=== PATIENT | male | born 1930 | race Caucasian/White ===

== ENCOUNTER 2017-11-19 12:15 | Emergency (ER) | payer OTHER ==
[~2017-11-19] VITALS: Ht 182.9 cm; Wt 81.7 kg
[2017-11-19] MEDS ORDERED: COLACE100 MG PO (12:30)
[2017-11-19] MEDS ORDERED: CALCIUM 600 +1 EAC1 PO (12:30)
[2017-11-19] MEDS ORDERED: IRON325 PO (12:31)
[2017-11-19] MEDS ORDERED: SYNTHROID50 MCG PO (12:31)
[2017-11-19] MEDS ORDERED: LISINOPRIL-HCT1 EAC1 PO (12:32)
[2017-11-19] MEDS ORDERED: REMERON15 MG PO (12:32)
[2017-11-19] MEDS ORDERED: UNICOMPLEX M TA1 TA1 PO (12:32)
[2017-11-19] MEDS ORDERED: NAMZARIC 28 MG1 EACH PO (12:32)
[2017-11-19] MEDS ORDERED: SIMVASTATIN40 MG PO (12:33)
[2017-11-19] MEDS ORDERED: VITAMIN B-12500 MCG PO (12:33)
[2017-11-19 12:35] LABS: URINE BILIRUBIN NEGATIVE (Negative); URINE BLOOD NEGATIVE (Negative); URINE CLARITY CLEAR; URINE COLOR YELLOW; URINE GLUCOSE-RANDOM NEGATIVE (Negative); URINE KETONES NEGATIVE (Negative); URINE LEUKOCYTES-REFLEX NEGATIVE (Negative); URINE NITRITE-REFLEX NEGATIVE (Negative); URINE PROTEIN NEGATIVE (Negative); URINE SPECIFIC GRAVITY 1.015 (1.005-1.030); URINE UROBILINOGEN 0.2 E.U./dl (0.2-1.0)
[2017-11-19 12:48] LABS: ABSOLUTE BASOPHILS 0.1 thou/uL (0.0-0.2); ABSOLUTE EOSINOPHILS 0.1 thou/uL (0.0-0.7); ABSOLUTE LYMPHOCYTES 2.1 thou/uL (0.8-5.3); ABSOLUTE MONOCYTES 0.6 thou/uL (0.0-1.2); ABSOLUTE NEUTROPHILS 5.3 thou/uL (1.6-8.1); BASOPHILS 0.9 %; EOSINOPHILS 1.1 %; HEMATOCRIT 35.4 % (42.0-52.0); HEMOGLOBIN 12.2 gm/dL (14.0-18.0); LYMPHOCYTES 25.6 %; MCH 32.6 pg (26.0-34.0); MCHC 34.4 g/dL (28.0-37.0); MCV 94.8 fL (80.0-100.0); MONOCYTES 7.8 %; MPV 7.2 fl. (7.2-11.1); NUCLEATED RBCS 0 /100WBC; PLATELET COUNT* 160 thou/uL (150-400); POLYS 64.6 %; RBC 3.74 mil/uL (4.50-6.00); RDW-CV 13.2 % (10.5-14.5); WBC 8.2 thou/uL (4.0-11.0)
[2017-11-19 12:56] LABS: ANION GAP 9 mmol/L (7-16); BUN 17 mg/dL (7-18); CALCIUM 9.5 mg/dL (8.5-10.1); CHLORIDE 101 mmol/L (98-107); CO2 30 mmol/L (21-32); CREATININE 1.2 mg/dL (0.6-1.3); GLUCOSE 106 mg/dL (70-99); POTASSIUM 3.9 mmol/L (3.5-5.1); SODIUM 140 mmol/L (136-145)
[2017-11-19 13:03] LABS: ALBUMIN 3.8 g/dL (3.4-5.0); ALKALINE PHOSPHATASE 77 U/L (46-116); MAGNESIUM 1.7 mg/dL (1.8-2.4); SGOT 20 U/L (15-37); SGPT 19 U/L (30-65); TOTAL BILIRUBIN 0.4 mg/dL (<0.1-1.0); TOTAL PROTEIN 7.4 g/dL (6.4-8.2); TROPONIN-I LEVEL <0.06 ng/mL (<0.06)
[2017-11-19 13:17] LABS: BE 2.6 mmol/L (-2 to +3); HCO3 25.6 mmol/L (22.0-26.0); PO2 91.9 mmHg (75.0-100.0); pH 7.494 (7.340-7.450)
[2017-11-19 14:53] LABS: AMP/METHAMP Negative (Negative); BARBITURATES Negative (Negative); BENZODIAZEPINES Negative (Negative); COCAINE Negative (Negative); METHADONE Negative (Negative); OPIATES Negative (Negative); PCP Negative (Negative); THC Negative (Negative)
[2017-11-19 14:53] LABS: ALCOHOL < 10 mg/dL (<10); SALICYLATE < 2.8 mg/dL (2.8-20.0)
[2017-11-19 14:54] LABS: ACETAMINOPHEN < 2 ug/mL (10-30)
[2017-11-19 23:26] VITALS: BP 109/61
--- NOTE | 2017-11-20 12:40 | EKG ---
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
== END 2017-11-19 23:52 ==
LOC: M.ERS 12:15
PROVIDERS: Personal Emergency Response Attendant
DX: F32.9 Major depressive disorder, single episode, unspecified (principal); F41.9 Anxiety disorder, unspecified; F03.90 Unspecified dementia, unspecified severity, without behavioral disturbance, psychotic disturbance, mood disturbance, and anxiety; I10 Essential (primary) hypertension; E03.9 Hypothyroidism, unspecified; E78.5 Hyperlipidemia, unspecified; E11.9 Type 2 diabetes mellitus without complications; Z86.2 Personal history of diseases of the blood and blood-forming organs and certain disorders involving the immune mechanism